=== PATIENT | female | born 1990 | race Caucasian/White ===

== ENCOUNTER 2017-09-12 08:29 | Emergency (ER) | payer OTHER ==
[~2017-09-12] VITALS: Ht 170.2 cm; Wt 66.7 kg
[2017-09-12 09:58] LABS: HEMATOCRIT 35.3 % (36.0-46.0); MCH 32.6 PG (29.0-34.0); MCHC 36.8 G/DL (30.0-36.0); MCV 88.5 FL (83-99); PLATELET COUNT 242 K/uL (156-360); RBC DIS.WIDTH-CV 12.1 % (11.8-14.6); RBC DIS.WIDTH-SD 39.4 % (39-53); RED BLOOD COUNT 3.99 M/uL (3.80-5.20); WHITE BLOOD COUNT 8.3 K/uL (4.1-10.2)
[2017-09-12 10:07] LABS: CHLORIDE 106 mEq/L (99-109); POTASSIUM 4.2 mEq/L (3.7-5.4); SODIUM 137 mEq/L (136-147)
[2017-09-12 10:09] LABS: GLUCOSE 89 mg/dL (70-99); TOTAL PROTEIN 6.7 g/dL (6.4-8.3)
[2017-09-12 10:11] LABS: TOTAL BILIRUBIN 0.2 mg/dL (0.0-1.0)
[2017-09-12 10:11] LABS: APPEARANCE CLEAR ((CLEAR)); BILIRUBIN NEGATIVE; BLOOD NEGATIVE; COLOR STRAW ((YELLOW)); GLUCOSE (STRIP) NEGATIVE; KETONES NEGATIVE; LEUKOCYTES NEGATIVE; NITRITE NEGATIVE; PROTEIN (STRIP) NEGATIVE; UCUL ADDED? NO; UROBILINOGEN 0.2 MG/DL (0.2-1.0)
[2017-09-12 10:13] LABS: ALKALINE PHOSPHATASE 64 IU/L (3-129); CREATININE 0.6 mg/dL (0.6-1.3)
[2017-09-12 10:14] LABS: UREA NITROGEN (BUN) 6 mg/dL (9-23)
[2017-09-12 10:15] LABS: AST (GOT) 15 IU/L (2-34)
[2017-09-12 10:16] LABS: ALT (GPT) 11 IU/L (3-49)
[2017-09-12 10:19] LABS: GFR ESTIMATE (CALCULATED) > 59 mL/min/
[2017-09-12 10:46] LABS: QUANTITATIVE HCG 80150.2 MIU/ML
[2017-09-12 13:57] VITALS: BP 130/62
== END 2017-09-12 13:58 | disposition home or self-care (01) ==
LOC: EME 08:29
PROVIDERS: Physician Assistant
DX: O26.891 Other specified pregnancy related conditions, first trimester (principal); R10.2 Pelvic and perineal pain; O99.331 Smoking (tobacco) complicating pregnancy, first trimester; F17.200 Nicotine dependence, unspecified, uncomplicated; Z3A.11 11 weeks gestation of pregnancy
CPT/HCPCS: 76801; 80053; 81003; 84702; 85027; 86900; 86901; 99281; 99284